=== PATIENT | female | born 1990 | race Caucasian/White ===

== ENCOUNTER 2016-05-28 03:47 | Emergency (ER) | payer OTHER ==
[~2016-05-28 03:47] MED LIST: MACR100C PO
[2016-05-28 04:00] VITALS: BP 110/74; PULSE 114; PULSE 98; RESP 16; TEMP 99.1; O2SAT 100; O2SAT 99
[2016-05-28] MEDS ORDERED: SODIUM CHLOR 0.9% 1000 ML INJ 1,000 ML IV SCH (04:07)
[2016-05-28] MEDS ORDERED: ONDANSETRON HCL 4 MG/2 ML VIAL IVP ONE (04:15)
[2016-05-28] MEDS ORDERED: SODIUM CHLOR 0.9% 1000 ML INJ 1,000 ML IV ONE (04:15)
[2016-05-28] MEDS ORDERED: SODIUM CHLORIDE 0.9% FLUSH 5 ML FLUSH IVF PRN (04:15)
[2016-05-28] MEDS ORDERED: MORPHINE SULFATE 4 MG/ML INJ IV PUSH ONE (04:15)
[2016-05-28] MEDS ORDERED: DICYCLOMINE HCL 10 MG CAP PO ONE (04:15)
--- NOTE | 2016-05-28 04:25 | PD ---
HPI Chief Complaint: GI Complaint Time Seen by Provider: 03:54 Travel History International Travel<30 days: No Contact w/Intl Traveler<30days: No Traveled to known affect area: No History of Present Illness HPI The patient is a 26-year-old female who presents emergency department for nausea , vomiting, and diarrhea. The patient notes a 5 year history of similar symptoms in the past, states she is undergone endoscopy, colonoscopy, multiple imaging studies which were unremarkable. The patient states that she is had flulike symptoms over the last week with cough, cold, and congestion. However, last night she developed nausea and vomiting followed by diarrhea. Patient states the diarrhea as loose, watery, without any visible blood. The patient denies any vaginal discharge or bleeding. The patient's last mental cycle was May 02, she denies . The patient does have a history of chronic dysuria, over one year, per her report. The patient denies any fever, chills, or sweats. The patient denies any ingestion of alcohol or illicit drugs. PFSH Past Medical History Hx Anticoagulant Therapy: No ADHD: Yes Cardiovascular Problems: Yes Chemotherapy: No Cerebrovascular Accident: No Diabetes: No Diminished Hearing: No Gastrointestinal Disorders: Yes Neurologic: Yes (DOWNS) Reproductive: Yes (GENITAL RASH DURING ) Respiratory: No Immunizations Current: No ?: Not LMP: MAY 02 2016 : 2 Para: 1 Miscarriage: 1 : 0 Past Surgical History Cardiac Surgery: Yes (OPEN HEART CHILD/closure vsd) Section: Yes Family History Family Hypercholesterolemia: Yes Social History Alcohol Use: No Tobacco Use: No Substance Use: No Allergies-Medications (Allergen,Severity, Reaction): Coded Allergies: Prednisone (Unverified Allergy, Severe, HIVES, 05/28/16) Reported Meds & Prescriptions Reported Meds & Active Scripts Active Review of Systems Except as stated in HPI: all other systems reviewed are Neg General / Constitutional: No: Fever, Chills HENT: Positive: Congestion Respiratory: Positive: Cough Gastrointestinal: Positive: Nausea, Vomiting, Diarrhea, Abdominal Pain ( intermittent crampy abdominal pain) Genitourinary: Positive: Dysuria (dysuria of one year's duration), No: Urgency , Frequency Physical Exam Narrative GENERAL: Awake, alert, pleasant 26-year-old female who appears her stated age and is in no acute respiratory distress. SKIN: Warm and dry. HEAD: Atraumatic. Normocephalic. EYES: Pupils equal and round. No scleral icterus. No injection or drainage. ENT: No nasal bleeding or discharge. Slightly dry mixed membranes. NECK: Trachea midline. No JVD. CARDIOVASCULAR: Regular, tachycardic with a heart rate 115. RESPIRATORY: No accessory muscle use. Clear to auscultation. Breath sounds equal bilaterally. GASTROINTESTINAL: Abdomen soft, non-tender, nondistended. No rebound tenderness , guarding, or rigidity. MUSCULOSKELETAL: No obvious deformities. No clubbing. No cyanosis. No edema. NEUROLOGICAL: Awake and alert. Nonfocal. PSYCHIATRIC: Appropriate mood and affect; insight and judgment normal. Data Data Orders Complete Blood Count With Diff (05/28/16 04:07) Comprehensive Metabolic Panel (05/28/16 04:07) Lipase (05/28/16 04:07) Urinalysis - C+S If Indicated (05/28/16 04:07) Iv Access Insert/Monitor (05/28/16 04:07) Ecg Monitoring (05/28/16 04:07) Oximetry (05/28/16 04:07) Morphine Inj (Morphine Inj) (05/28/16 04:15) Ondansetron Inj (Zofran Inj) (05/28/16 04:15) Sodium Chlor 0.9% 1000 Ml Inj (Ns 1000 M (05/28/16 04:07) Sodium Chloride 0.9% Flush (Ns Flush) (05/28/16 04:15) Dicyclomine (Bentyl) (05/28/16 04:15) Ed Urine Pregnancytest Poc (05/28/16 04:07) Sodium Chlor 0.9% 1000 Ml Inj (Ns 1000 M (05/28/16 04:15) Labs Laboratory Tests Test 05/28/16 04:20 White Blood Count 13.4 TH/MM3 Red Blood Count 4.84 MIL/MM3 Hemoglobin 13.8 GM/DL Hematocrit 40.8 % Mean Corpuscular Volume 84.5 FL Mean Corpuscular Hemoglobin 28.5 PG Mean Corpuscular Hemoglobin 33.7 % Concent Red Cell Distribution Width 13.9 % Platelet Count 198 TH/MM3 Mean Platelet Volume 9.4 FL Neutrophils (%) (Auto) 90.4 % Lymphocytes (%) (Auto) 3.9 % Monocytes (%) (Auto) 4.9 % Eosinophils (%) (Auto) 0.5 % Basophils (%) (Auto) 0.3 % Neutrophils # (Auto) 12.1 TH/MM3 Lymphocytes # (Auto) 0.5 TH/MM3 Monocytes # (Auto) 0.7 TH/MM3 Eosinophils # (Auto) 0.1 TH/MM3 Basophils # (Auto) 0.0 TH/MM3 CBC Comment DIFF FINAL Differential Comment Urine Color YELLOW Urine Turbidity HAZY Urine pH 6.5 Urine Specific [place] 1.027 Urine Protein 30 mg/dL Urine Glucose (UA) NEG mg/dL Urine Ketones TRACE mg/dL Urine Occult Blood NEG Urine Nitrite NEG Urine Bilirubin NEG Urine Urobilinogen LESS THAN 2.0 MG/DL Urine Leukocyte Esterase TRACE Urine RBC 2 /hpf Urine WBC 1 /hpf Urine Squamous Epithelial 7 /hpf Cells Urine Mucus FEW /lpf Microscopic Urinalysis Comment CULT NOT INDICATED Sodium Level 139 MEQ/L Potassium Level 3.3 MEQ/L Chloride Level 103 MEQ/L Carbon Dioxide Level 22.9 MEQ/L Anion Gap 13 MEQ/L Blood Urea Nitrogen 10 MG/DL Creatinine 0.72 MG/DL Estimat Glomerular Filtration 99 ML/MIN Rate Random Glucose 107 MG/DL Calcium Level 8.7 MG/DL Total Bilirubin 0.8 MG/DL Aspartate Amino Transf 11 U/L (AST/SGOT) Alanine Aminotransferase 14 U/L (ALT/SGPT) Alkaline Phosphatase 57 U/L Total Protein 8.3 GM/DL Albumin 4.0 GM/DL Lipase 176 U/L [facility] Medical Decision Making Medical Screen Exam Complete: Yes Emergency Medical Condition: Yes Medical Record Reviewed: Yes Interpretation(s) Laboratory Tests Test 05/28/16 04:20 White Blood Count 13.4 TH/MM3 Red Blood Count 4.84 MIL/MM3 Hemoglobin 13.8 GM/DL Hematocrit 40.8 % Mean Corpuscular Volume 84.5 FL Mean Corpuscular Hemoglobin 28.5 PG Mean Corpuscular Hemoglobin 33.7 % Concent Red Cell Distribution Width 13.9 % Platelet Count 198 TH/MM3 Mean Platelet Volume 9.4 FL Neutrophils (%) (Auto) 90.4 % Lymphocytes (%) (Auto) 3.9 % Monocytes (%) (Auto) 4.9 % Eosinophils (%) (Auto) 0.5 % Basophils (%) (Auto) 0.3 % Neutrophils # (Auto) 12.1 TH/MM3 Lymphocytes # (Auto) 0.5 TH/MM3 Monocytes # (Auto) 0.7 TH/MM3 Eosinophils # (Auto) 0.1 TH/MM3 Basophils # (Auto) 0.0 TH/MM3 CBC Comment DIFF FINAL Differential Comment Urine Color YELLOW Urine Turbidity HAZY Urine pH 6.5 Urine Specific [place] 1.027 Urine Protein 30 mg/dL Urine Glucose (UA) NEG mg/dL Urine Ketones TRACE mg/dL Urine Occult Blood NEG Urine Nitrite NEG Urine Bilirubin NEG Urine Urobilinogen LESS THAN 2.0 MG/DL Urine Leukocyte Esterase TRACE Urine RBC 2 /hpf Urine WBC 1 /hpf Urine Squamous Epithelial 7 /hpf Cells Urine Mucus FEW /lpf Microscopic Urinalysis Comment CULT NOT INDICATED Sodium Level 139 MEQ/L Potassium Level 3.3 MEQ/L Chloride Level 103 MEQ/L Carbon Dioxide Level 22.9 MEQ/L Anion Gap 13 MEQ/L Blood Urea Nitrogen 10 MG/DL Creatinine 0.72 MG/DL Estimat Glomerular Filtration 99 ML/MIN Rate Random Glucose 107 MG/DL Calcium Level 8.7 MG/DL Total Bilirubin 0.8 MG/DL Aspartate Amino Transf 11 U/L (AST/SGOT) Alanine Aminotransferase 14 U/L (ALT/SGPT) Alkaline Phosphatase 57 U/L Total Protein 8.3 GM/DL Albumin 4.0 GM/DL Lipase 176 U/L Differential Diagnosis Differential diagnosis includes gastroenteritis, enteritis, colitis, viral syndrome, influenza, IBS, dehydration, electrolyte abnormality. Narrative Course IV was established, labs are drawn and sent, and the patient was placed on cardiac telemetry monitoring and continuous pulse oximetry monitoring. The patient was administered IV fluids, morphine, Zofran, and Bentyl. UA was sent to lab. Bedside UA test was negative. WBC is slightly elevated just greater than 13, LFTs and lipase are unremarkable. UA is negative. The patient appears to have gastroenteritis, will be discharged home on Bentyl and Zofran. The patient is advised to follow-up with her primary physician and return if symptoms worsen or progress. Diagnosis Primary Impression: Gastroenteritis Patient Instructions: General Instructions Additional Instructions: Medications as directed. Clear liquid diet and advance as tolerated. Plenty of fluids to stay hydrated. Follow-up with your primary physician. Return if symptoms worsen or progress. Med/Other Pt SpecificInfo: Prescription(s) given Scripts Dicyclomine (Bentyl)20 Mg Tab20 Mg PO QID #20 TAB Ref 0 Prov:Chino Mulligan MD 05/28/16 Promethazine (Phenergan)25 Mg Tab25 Mg PO Q6H PRN (Nausea/Vomiting) #15 TAB Ref 0 Prov:Chino Mulligan MD 05/28/16 Ondansetron Odt (Zofran Odt)4 Mg Tab4 Mg SL Q6HR PRN (Nausea/Vomiting) #7 TAB Ref 0 Prov:Chino Mulligan MD 05/28/16 Disposition: 01 DISCHARGE HOME Condition: Stable Chino Mulligan MD May 28, 2016 04:25
[2016-05-28 04:28] LABS: BLOOD, URINE NEG (NEG); COMMENT (UR) CULT NOT INDICATED; CULTURE IF INDICATED CULT NOT INDICATED; GLUCOSE,URINE NEG (NEG); KETONE, URINE TRACE mg/dL (NEG); MUCUS URINE FEW /lpf (OCC); NITRITE,URINE NEG (NEG); PH, URINE 6.5 (5.0-8.5); SQUAMOUS EPITHELIAL CELL URINE 7 /hpf (0-5); URINE COLOR YELLOW (YELLW/STRAW)
[2016-05-28 04:36] LABS: AUTOMATED NEUTROPHIL # 12.1 TH/MM3 (1.8-7.7); BASOPHIL % 0.3 % (0.0-2.0); EOSINOPHIL # 0.1 TH/MM3 (0-0.4); EOSINOPHIL % 0.5 % (0.0-4.0); HEMATOCRIT 40.8 % (35.0-46.0); HEMO FLAGS DIFF FINAL; LYMPH % 3.9 % (9.0-44.0); LYMPHOCYTE # 0.5 TH/MM3 (1.0-4.8); MEAN CELL VOLUME 84.5 FL (80.0-100.0); MEAN CORPUSCULAR HEMOGLOBIN 28.5 PG (27.0-34.0); MEAN CORPUSCULAR HGB CONC 33.7 % (32.0-36.0); MONO % 4.9 % (0.0-8.0); NEUT % 90.4 % (16.0-70.0); PLATELET COUNT 198 TH/MM3 (150-450); RED BLOOD COUNT 4.84 MIL/MM3 (4.00-5.30); RED CELL DISTRIBUTION WIDTH 13.9 % (11.6-17.2); WHITE BLOOD COUNT 13.4 TH/MM3 (4.0-11.0)
[2016-05-28 04:50] LABS: ANION GAP 13 MEQ/L (5-15); AST (GOT) 11 U/L (15-37); BICARBONATE 22.9 MEQ/L (21.0-32.0); BLOOD UREA NITROGEN 10 MG/DL (7-18); CHLORIDE 103 MEQ/L (98-107); GLOMERULAR FILTRATION RATE 99 ML/MIN (>89); POTASSIUM 3.3 MEQ/L (3.5-5.1); SODIUM (NA) 139 MEQ/L (136-145)
[2016-05-28 04:54] LABS: ALKALINE PHOSPHATASE 57 U/L (45-117); ALT (GPT) 14 U/L (10-53); TOTAL BILIRUBIN ADULT 0.8 MG/DL (0.2-1.0)
[2016-05-28] MEDS ORDERED: ZOFR4TAB3 SL (05:07)
[2016-05-28] MEDS ORDERED: PROM25TA5 PO (05:07)
[2016-05-28] MEDS ORDERED: BENT20TA PO (05:07)
[2016-05-28 06:48] VITALS: BP 107/63; PULSE 98; RESP 16; O2SAT 98
== END 2016-05-28 09:14 | disposition home or self-care (01) ==
LOC: NEPE 03:47
DX: K52.9 Noninfective gastroenteritis and colitis, unspecified (principal); R05 Cough; Z86.59 Personal history of other mental and behavioral disorders; Z86.79 Personal history of other diseases of the circulatory system; Z87.19 Personal history of other diseases of the digestive system; Z86.69 Personal history of other diseases of the nervous system and sense organs
CPT/HCPCS: 80053; 81001; 83690; 84703; 85025; 96361; 96374; 96375; 99284; J2270; J2405; J7030

== ENCOUNTER 2016-07-28 11:37 | Emergency (ER) | payer OTHER ==
[~2016-07-28] VITALS: Ht 160 cm; Wt 70.0 kg
[~2016-07-28 11:37] MED LIST changes: +BENT20TA PO; -MACR100C PO; +PROM25TA5 PO; +ZOFR4TAB3 SL
[2016-07-28 11:38] VITALS: BP 120/82; PULSE 72; RESP 20; TEMP 97.9; O2SAT 100
[2016-07-28] MEDS ORDERED: SODIUM CHLOR 0.9% 1000 ML INJ 1,000 ML IV SCH (12:03)
[2016-07-28] MEDS ORDERED: ONDANSETRON HCL 4 MG/2 ML VIAL IVP ONE (12:15)
[2016-07-28] MEDS ORDERED: MORPHINE SULFATE 4 MG/ML INJ IV PUSH ONE (12:15)
[2016-07-28] MEDS: SODIUM CHLORIDE 0.9% FLUSH 10 ML FLUSH IV FLUSH PRN ×2 (12:33→14:43)
[2016-07-28 13:08] LABS: AUTOMATED NEUTROPHIL # 3.5 TH/MM3 (1.8-7.7); BASOPHIL % 0.5 % (0.0-2.0); EOSINOPHIL # 0.1 TH/MM3 (0-0.4); EOSINOPHIL % 1.6 % (0.0-4.0); HEMATOCRIT 42.4 % (35.0-46.0); HEMO FLAGS DIFF FINAL; LYMPH % 35.8 % (9.0-44.0); LYMPHOCYTE # 2.3 TH/MM3 (1.0-4.8); MEAN CELL VOLUME 83.7 FL (80.0-100.0); MEAN CORPUSCULAR HEMOGLOBIN 28.1 PG (27.0-34.0); MEAN CORPUSCULAR HGB CONC 33.6 % (32.0-36.0); MONO % 7.8 % (0.0-8.0); NEUT % 54.3 % (16.0-70.0); PLATELET COUNT 251 TH/MM3 (150-450); RED BLOOD COUNT 5.07 MIL/MM3 (4.00-5.30); RED CELL DISTRIBUTION WIDTH 13.9 % (11.6-17.2); WHITE BLOOD COUNT 6.5 TH/MM3 (4.0-11.0)
[2016-07-28 13:12] LABS: BACTERIA, URINE OCC /hpf; BLOOD, URINE LARGE (NEG); COMMENT (UR) CULTURE INDICATED; CULTURE IF INDICATED CULTURE INDICATED; GLUCOSE,URINE NEG (NEG); KETONE, URINE NEG (NEG); MUCUS URINE MANY /lpf (OCC); NITRITE,URINE NEG (NEG); SQUAMOUS EPITHELIAL CELL URINE 13 /hpf (0-5); URINE COLOR YELLOW (YELLW/STRAW)
[2016-07-28 13:18] LABS: ANION GAP 6 MEQ/L (5-15); AST (GOT) 11 U/L (15-37); BICARBONATE 28.9 MEQ/L (21.0-32.0); BLOOD UREA NITROGEN 10 MG/DL (7-18); CHLORIDE 106 MEQ/L (98-107); GLOMERULAR FILTRATION RATE 93 ML/MIN (>89); POTASSIUM 3.5 MEQ/L (3.5-5.1); SODIUM (NA) 141 MEQ/L (136-145)
[2016-07-28 13:23] LABS: ALKALINE PHOSPHATASE 68 U/L (45-117); ALT (GPT) 14 U/L (10-53); BETA HCG QUANT LESS THAN 1 MIU/ML (0-5); TOTAL BILIRUBIN ADULT 0.4 MG/DL (0.2-1.0)
--- NOTE | 2016-07-28 13:32 | PD ---
HPI Chief Complaint: Abdominal Pain Time Seen by Provider: 11:55 Travel History International Travel<30 days: No Contact w/Intl Traveler<30days: No Traveled to known affect area: No History of Present Illness HPI 26-year-old female here for evaluation of abdominal pain and diarrhea. The patient reports that she has had diarrhea for the last 5 years, worse over the last year, and worse over the last week or so. She has also had bright red blood per rectum noting that there has been spots of blood in the toilet and on the toilet paper. She is having some burning sensation in her rectum. History of section. No other abdominal surgeries. No fevers or chills. She feels nauseous but has not vomited. She is currently on her menstrual period. No urinary symptoms. PFSH Past Medical History Hx Anticoagulant Therapy: No ADHD: Yes Cardiovascular Problems: Yes Chemotherapy: No Cerebrovascular Accident: No Diabetes: No Diminished Hearing: No Gastrointestinal Disorders: Yes Neurologic: Yes (DOWNS) Reproductive: Yes (GENITAL RASH DURING ) Respiratory: No Immunizations Current: No ?: Not LMP: 07/27/16 : 2 Para: 1 Miscarriage: 1 : 0 Past Surgical History Cardiac Surgery: Yes (OPEN HEART CHILD/closure vsd) Section: Yes Family History Family Hypercholesterolemia: Yes Social History Alcohol Use: No Tobacco Use: No Substance Use: No Allergies-Medications (Allergen,Severity, Reaction): Coded Allergies: Prednisone (Unverified Allergy, Severe, HIVES, 07/28/16) Reported Meds & Prescriptions Reported Meds & Active Scripts Active Bentyl (Dicyclomine HCl) 20 Mg Tab 20 Mg PO QID Phenergan (Promethazine HCl) 25 Mg Tab 25 Mg PO Q6H PRN Zofran Odt (Ondansetron Odt) 4 Mg Tab 4 Mg SL Q6HR PRN Review of Systems Except as stated in HPI: all other systems reviewed are Neg Physical Exam Narrative GENERAL: Well-developed, well-nourished, comfortable, no acute distress. SKIN: Focused skin assessment warm/dry. HEAD: Atraumatic. Normocephalic. EYES: Pupils equal and round. No scleral icterus. No injection or drainage. ENT: Mucous membranes pink and moist. NECK: Trachea midline. No JVD. CARDIOVASCULAR: Regular rate and rhythm. RESPIRATORY: No accessory muscle use. Clear to auscultation. Breath sounds equal bilaterally. GASTROINTESTINAL: Abdomen soft, nondistended. Mild lower abdominal/suprapubic tenderness without peritoneal signs. Rest of abdomen is soft and nontender. No hernias. Normal bowel sounds. Rectal exam performed in the presence of a female nurse and shows no masses, no fissures, no hemorrhoids, heme-negative brown stool. MUSCULOSKELETAL: No obvious deformities. No clubbing. No cyanosis. No edema. NEUROLOGICAL: Awake and alert. No obvious cranial nerve deficits. Motor grossly within normal limits. Normal speech. PSYCHIATRIC: Appropriate mood and affect; insight and judgment normal. Data Data Last Documented VS Vital Signs Date Time Temp Pulse Resp B/P Pulse Ox O2 Delivery O2 Flow Rate FiO2 07/28/16 11:38 97.9 72 20 120/82 100 Room Air Orders Beta Hcg (Quant/Titer) (07/28/16 12:03) Complete Blood Count With Diff (07/28/16 12:03) Comprehensive Metabolic Panel (07/28/16 12:03) Prothrombin Time / Inr (Pt) (07/28/16 12:03) Act Partial Throm Time (Ptt) (07/28/16 12:03) Urinalysis - C+S If Indicated (07/28/16 12:03) Ct Abd/Pel W Iv Contrast(Rout) (07/28/16 12:03) Iv Access Insert/Monitor (07/28/16 12:03) Ecg Monitoring (07/28/16 12:03) Oximetry (07/28/16 12:03) Morphine Inj (Morphine Inj) (07/28/16 12:15) Ondansetron Inj (Zofran Inj) (07/28/16 12:15) Sodium Chlor 0.9% 1000 Ml Inj (Ns 1000 M (07/28/16 12:03) Sodium Chloride 0.9% Flush (Ns Flush) (07/28/16 12:15) Ed Urine Pregnancytest Poc (07/28/16 12:03) Urine Culture (07/28/16 12:20) Iohexol 350 Inj (Omnipaque 350 Inj) (07/28/16 13:55) Labs Laboratory Tests Test 07/28/16 07/28/16 12:20 12:30 Urine Color YELLOW Urine Turbidity HAZY Urine pH 6.0 Urine Specific [place] 1.040 Urine Protein 30 mg/dL Urine Glucose (UA) NEG mg/dL Urine Ketones NEG mg/dL Urine Occult Blood LARGE Urine Nitrite NEG Urine Bilirubin NEG Urine Urobilinogen LESS THAN 2.0 MG/DL Urine Leukocyte Esterase NEG Urine RBC 2 /hpf Urine WBC 11 /hpf Urine Squamous Epithelial 13 /hpf Cells Urine Bacteria OCC /hpf Urine Mucus MANY /lpf Microscopic Urinalysis Comment CULTURE INDICATED White Blood Count 6.5 TH/MM3 Red Blood Count 5.07 MIL/MM3 Hemoglobin 14.3 GM/DL Hematocrit 42.4 % Mean Corpuscular Volume 83.7 FL Mean Corpuscular Hemoglobin 28.1 PG Mean Corpuscular Hemoglobin 33.6 % Concent Red Cell Distribution Width 13.9 % Platelet Count 251 TH/MM3 Mean Platelet Volume 9.1 FL Neutrophils (%) (Auto) 54.3 % Lymphocytes (%) (Auto) 35.8 % Monocytes (%) (Auto) 7.8 % Eosinophils (%) (Auto) 1.6 % Basophils (%) (Auto) 0.5 % Neutrophils # (Auto) 3.5 TH/MM3 Lymphocytes # (Auto) 2.3 TH/MM3 Monocytes # (Auto) 0.5 TH/MM3 Eosinophils # (Auto) 0.1 TH/MM3 Basophils # (Auto) 0.0 TH/MM3 CBC Comment DIFF FINAL Differential Comment Prothrombin Time 11.0 SEC Prothromb Time International 1.0 RATIO Ratio Activated Partial 28.0 SEC Thromboplast Time Sodium Level 141 MEQ/L Potassium Level 3.5 MEQ/L Chloride Level 106 MEQ/L Carbon Dioxide Level 28.9 MEQ/L Anion Gap 6 MEQ/L Blood Urea Nitrogen 10 MG/DL Creatinine 0.76 MG/DL Estimat Glomerular Filtration 93 ML/MIN Rate Random Glucose 83 MG/DL Calcium Level 9.2 MG/DL Total Bilirubin 0.4 MG/DL Aspartate Amino Transf 11 U/L (AST/SGOT) Alanine Aminotransferase 14 U/L (ALT/SGPT) Alkaline Phosphatase 68 U/L Total Protein 8.8 GM/DL Albumin 4.1 GM/DL Human Chorionic Gonadotropin, LESS THAN 1 Quant MIU/ML MDM Medical Decision Making Medical Screen Exam Complete: Yes Emergency Medical Condition: Yes Differential Diagnosis Colitis, diarrhea, dehydration, metabolic and normality, UTI Narrative Course Vital signs are within normal limits. CBC is unremarkable. CMP is unremarkable. Beta hCG is negative. UA shows large occult blood, 11 WBCs, occasional bacteria, many mucus. The patient is currently on her menstrual period. She will be started on Macrobid. CT abdomen pelvis: CONCLUSION: No acute finding is identified within the abdomen or pelvis. Patient was made aware of all findings. She is resting comfortably. No peritoneal signs on exam. Symptoms have been going on for several years. I gave her the information to the recently opened [facility] to follow-up with. I will also give her the name of the folder hand medical science liaison with whom to follow-up with this week. She was informed on when to return to the emergency department. She verbalizes understanding and agreement with plan. Diagnosis Primary Impression: UTI (urinary tract infection) Qualified Code: N30.01 - Acute cystitis with hematuria Additional Impression: Abdominal pain Qualified Code: R10.9 - Abdominal pain, unspecified location Referrals: Liang Knowles MD 1 week [facility] 3 days Primary Care Physician 3 days Additional Instructions: Follow-up with a primary care physician this week. Follow-up with folder hand Dr. Knowles or a folder hand of your choice this week. Return to the emergency department for worsening symptoms or any other concerns. Scripts Naproxen (Naprosyn)500 Mg [id number] Mg PO BID 10 Days Ref 0 Prov:Collin Kruse MD 07/28/16 Nitrofurantoin Monohydrate Macrocrystals (Macrobid)100 Mg [id number] Mg PO BID 5 Days Ref 0 Prov:Collin Kruse MD 07/28/16 Disposition: 01 DISCHARGE HOME Condition: Stable Collin Kruse MD Jul 28, 2016 13:32
[2016-07-28] MEDS ORDERED: IOHEXOL 350 MG/ML 10 ML VIAL (for RAD DIAG) IV ONE (13:55)
[2016-07-28 14:00] VITALS: BP 121/79; PULSE 68; RESP 18; TEMP 98.7; O2SAT 100
--- NOTE | 2016-07-28 14:03 | RADRPT ---
EXAM DATE/TIME: 07/28/2016 13:49 [place] COMPARISON: No previous studies available for comparison. INDICATIONS : Diffuse abdomen pain for one month with nausea and bloody stool. IV CONTRAST: 100 cc Omnipaque 350 (iohexol) IV ORAL CONTRAST: No oral contrast ingested. RADIATION DOSE: 7.39 CTDIvol (mGy) MEDICAL HISTORY : Cardiovascular disease. SURGICAL HISTORY : section. ENCOUNTER: Initial ACUITY: 1 month PAIN SCALE: 8/10 LOCATION: Bilateral lower quadrant TECHNIQUE: Volumetric scanning of the abdomen and pelvis was performed. Using automated exposure control and ad justment of the mA and/or kV according to patient size, radiation dose was kept as low as reasonably achievable to obtain optimal diagnostic quality images. FINDINGS: LOWER LUNGS: The visualized lower lungs are clear. LIVER: Homogeneous density without lesion. There is no dilation of the biliary tree. No calcified gallston es. SPLEEN: Normal size without lesion. PANCREAS: Within normal limits. KIDNEYS: Normal in size and shape. There is no mass, stone or hydronephrosis. ADRENAL GLANDS: Within normal limits. VASCULAR: There is no aortic aneurysm. BOWEL/MESENTERY: The stomach, small bowel, and colon demonstrate no acute abnormality. There is no free intraperitone al air or fluid. Appendix is normal. ABDOMINAL WALL: Within normal limits. RETROPERITONEUM: There is no lymphadenopathy. BLADDER: No wall thickening or mass. REPRODUCTIVE: Within normal limits. INGUINAL: There is no lymphadenopathy or hernia. MUSCULOSKELETAL: Within normal limits for patient age. CONCLUSION: No acute finding is identified within the abdomen or pelvis. Simba Santiago MD on July 28, 2016 at 13:58 Board Certified Radiologist. This report was verified electronically.
[2016-07-28] MEDS ORDERED: MACR100C2 PO (14:12)
[2016-07-28] MEDS ORDERED: NAPR500 PO (14:12)
[2016-07-28] MEDS ORDERED: KETOROLAC TROMETHAMINE 30 MG/ML (IVP) VIAL IV PUSH ONE (14:15)
== END 2016-07-28 14:41 | disposition home or self-care (01) ==
LOC: NEPD 11:37
DX: N39.0 Urinary tract infection, site not specified (principal); R10.9 Unspecified abdominal pain; B96.89 Other specified bacterial agents as the cause of diseases classified elsewhere
CPT/HCPCS: 74177; 80053; 81001; 84702; 84703; 85025; 85610; 85730; 87086; 96361; 96374; 96375; 99284; J1885; J2270; J2405; J7030; Q9967